=== PATIENT | male | born 1970 | race Caucasian/White ===

== ENCOUNTER → 2017-08-07 | Outpatient (CLI) | payer BC ==
--- NOTE | 2017-08-07 18:35 | XR ---
EXAMINATION TYPE: XR foot complete RT DATE OF EXAM: 08/07/2017 COMPARISON: NONE HISTORY: Pain for 6 months TECHNIQUE: 3 views FINDINGS: Metatarsals are intact. I see no fracture nor dislocation. There is a plantar and Achilles calcaneal spur. There are no erosions. There is mild multiple hammertoe deformity. IMPRESSION: No acute abnormality of the right foot. No evidence of inflammatory arthritis.
== END | disposition home or self-care (01) ==
LOC: RADXRMAIN 17:55
PROVIDERS: ATTEND Family Medicine
DX: M79.671 Pain in right foot (principal)

== ENCOUNTER → 2017-12-19 | Outpatient (CLI) | payer BC | END | disposition home or self-care (01) | LOC: LABWHC1 08:45 | PROVIDERS: ATTEND Physician Assistant | DX: R55 Syncope and collapse (principal) | CPT/HCPCS: 36415; 93005 ==

== ENCOUNTER → 2017-12-25 | Outpatient (CLI) | payer BC | END | disposition home or self-care (01) | LOC: RADECHMAIN 11:56 | PROVIDERS: ATTEND Family Medicine | DX: R00.0 Tachycardia, unspecified (principal); R55 Syncope and collapse | CPT/HCPCS: 93270; 93271 ==

== ENCOUNTER → 2021-10-05 | Outpatient (CLI) | payer BC ==
--- NOTE | 2021-10-05 11:41 | XR ---
Left shoulder HISTORY: Pain 3 views of left shoulder Distal acromion is downturned. Acromioclavicular joint shows arthropathy. Alignment is maintained. Jim ne mineralization and joint spaces are within normal limits. Left lung apex as visualized is normal. No fracture or dislocation. IMPRESSION: Correlate for impingement. Acromioclavicular joint arthropathy. Shoulder MRI may be of be nefit.
== END | disposition home or self-care (01) ==
LOC: RADXRMAIN 09:11
PROVIDERS: ATTEND Nurse Practitioner Family
DX: M12.812 Other specific arthropathies, not elsewhere classified, left shoulder (principal)